=== PATIENT | female | born 1975 | race Caucasian/White ===

== ENCOUNTER 2017-11-05 21:20 | Emergency (ER) | payer OTHER ==
[~2017-11-05] VITALS: Ht 160 cm; Wt 113.4 kg
[~2017-11-05 21:20] MED LIST: AZIT250 PO; CEPH500 PO; CRUTCH4 USE; DIVA250ER; DIVA500EC; HYDACE5 PO; HYDGUAL120 PO; LORA.5 PO; METO10 PO; NAPR500 PO; NAPR550 PO; OXYACE5T PO; PARO20; PENVK500 PO; PROCODE120 PO; RXOXYACE PO; SERT25 PO
[2017-11-05] MEDS ORDERED: Vibramycin100 MG PO (22:05)
[2017-11-05] MEDS ORDERED: CEPH500 PO (22:05)
== END 2017-11-05 22:17 | disposition home or self-care (01) ==
LOC: ER 21:20
DX: L03.317 Cellulitis of buttock (principal); Z88.2 Allergy status to sulfonamides; Z88.5 Allergy status to narcotic agent; Z88.8 Allergy status to other drugs, medicaments and biological substances; Z87.891 Personal history of nicotine dependence
CPT/HCPCS: 99283

== ENCOUNTER 2017-11-07 17:49 | Emergency (ER) | payer OTHER ==
[~2017-11-07] VITALS: Ht 160 cm; Wt 113.4 kg
[~2017-11-07 17:49] MED LIST changes: +Vibramycin100 MG PO
== END 2017-11-07 19:45 | disposition home or self-care (01) ==
LOC: ER 17:49
DX: L02.31 Cutaneous abscess of buttock (principal); Z88.2 Allergy status to sulfonamides; Z88.5 Allergy status to narcotic agent; Z88.8 Allergy status to other drugs, medicaments and biological substances; Z87.891 Personal history of nicotine dependence; Z90.89 Acquired absence of other organs
CPT/HCPCS: 10060; 99283; Q0163

== ENCOUNTER 2018-02-21 19:24 | Emergency (ER) | payer OTHER ==
[~2018-02-21] VITALS: Ht 160 cm; Wt 108.9 kg
== END 2018-02-21 21:53 | disposition home or self-care (01) ==
LOC: ER 19:24
DX: S89.92XA Unspecified injury of left lower leg, initial encounter (principal); X58.XXXA Exposure to other specified factors, initial encounter; Z88.2 Allergy status to sulfonamides; Z88.8 Allergy status to other drugs, medicaments and biological substances; Z88.1 Allergy status to other antibiotic agents; Z87.891 Personal history of nicotine dependence
CPT/HCPCS: 73562-LT; 99283

== ENCOUNTER → 2018-03-02 | Outpatient (CLI) | payer OTHER | END | disposition home or self-care (01) | LOC: LAB 17:17 → LAB SHORT 17:17 | DX: J02.0 Streptococcal pharyngitis (principal) | CPT/HCPCS: 87070; 87147 ==

== ENCOUNTER → 2018-10-05 | Outpatient (CLI) | payer OTHER ==
[2018-10-07 02:11] LABS: CHLAMYDIA TRACHOMATIS, NAA Negative (Negative); NEISSERIA GONORRHOEAE, NAA Negative (Negative)
== END ==
LOC: LAB SHORT 11:51 → LAB 11:51
PROVIDERS: Registered Nurse Community Health
DX: Z12.4 Encounter for screening for malignant neoplasm of cervix (principal); Z11.3 Encounter for screening for infections with a predominantly sexual mode of transmission; N93.0 Postcoital and contact bleeding
CPT/HCPCS: 87070; 87205; 87491; 87591; G0123

== ENCOUNTER 2019-06-20 15:41 | Emergency (ER) | payer OTHER ==
[~2019-06-20] VITALS: Ht 160 cm; Wt 117.9 kg
== END 2019-06-20 17:25 | disposition home or self-care (01) ==
LOC: ER 15:41
DX: R07.81 Pleurodynia (principal); Z87.891 Personal history of nicotine dependence; Z88.2 Allergy status to sulfonamides; Z88.1 Allergy status to other antibiotic agents; Z88.5 Allergy status to narcotic agent; Z88.8 Allergy status to other drugs, medicaments and biological substances
CPT/HCPCS: 71101; 72070; 72100; 99283-25

== ENCOUNTER → 2020-11-08 | Outpatient (CLI) | payer OTHER | LOC: LAB 11:30 → LAB SHORT 11:30 | DX: Z48.817 Encounter for surgical aftercare following surgery on the skin and subcutaneous tissue (principal) | CPT/HCPCS: 87070; 87205 ==

== ENCOUNTER 2021-08-08 09:27 | Day surgery (SDC) | payer OTHER ==
[~2021-08-08] VITALS: Ht 160 cm; Wt 122.9 kg
--- NOTE | 2021-08-08 12:20 | NUR ---
08/08/21 1220 DEZ HASSAN PT REFUSED FENTANYL- MED NOT GIVEN. NORCO 5/325MG PO WILL BE GIVEN INSTEAD. SHE HAS FEARS OF THE FENTANYL.
== END 2021-08-08 13:00 | disposition home or self-care (01) ==
LOC: ORSCSDS 09:27
PROVIDERS: Orthopaedic Surgery
PROC: 0SBC4ZZ Excision of Right Knee Joint, Percutaneous Endoscopic Approach (ICD-10-PCS; principal; 2021-08-08 10:45)
DX: S83.241A Other tear of medial meniscus, current injury, right knee, initial encounter (principal); S83.281A Other tear of lateral meniscus, current injury, right knee, initial encounter; M94.261 Chondromalacia, right knee; M65.9 Synovitis and tenosynovitis, unspecified; J45.909 Unspecified asthma, uncomplicated; G47.33 Obstructive sleep apnea (adult) (pediatric); E66.01 Morbid (severe) obesity due to excess calories; Z68.42 Body mass index [BMI] 45.0-49.9, adult
CPT/HCPCS: A9270; J0171; J1100; J1885; J2250; J2405; J2704; J2795; J3010; J7120

== ENCOUNTER → 2022-02-06 | Outpatient (CLI) | payer OTHER | END | disposition home or self-care (01) | LOC: LAB SHORT 11:46 → LAB 11:46 | DX: R82.998 Other abnormal findings in urine (principal) | CPT/HCPCS: 87086 ==

== ENCOUNTER 2024-09-30 10:06 | Day surgery (SDC) | payer OTHER ==
[~2024-09-30] VITALS: Ht 160 cm; Wt 122.7 kg
[~2024-09-30 10:06] MED LIST changes: +BUPR100 PO; +LINZESS72 MCG PO; +Lactated Ringer's 1,000 ML IV SCH; +OMEP20ER PO; +SERT100 PO
[2024-09-30 10:38] VITALS: BP 104/75
[2024-09-30] MEDS ORDERED: propofoL 100 ML IV ONE (10:38)
--- NOTE | 2024-09-30 10:45 | NUR ---
History, Chart, Medications and Allergies reviewed before start of procedure. Patient confirms NPO status and agrees with scheduled surgery. Patient States Post-Procedure ride home has been arranged with mom, who is in waiting room.
--- NOTE | 2024-09-30 10:58 | NUR ---
PATIENT REPORTS HAVING HAD TUBAL LIGATION IN PAST. NO HCG INDICATED PER POLICY.
--- NOTE | 2024-09-30 11:15 | NUR ---
09/30/24 1114 Hu Macias History, Chart, Medications and Allergies reviewed before start of procedure. MONITOR INTACT WITH CONTINUOUS PULSE OXIMETRY, CONTINUOUS END TITAL CO2, AND INTERMITTENT BLOOD PRESSURE. SEE DR MORA'S NOTES. GLASSES REMOVED IN ENDO ROOM 1.
[2024-09-30 11:39] VITALS: BP 107/60
--- NOTE | 2024-09-30 11:39 | NUR ---
PT TO DAY SURGERY STEP DOWN FROM COLONOSCOPY; BEDSIDE REPORT RECEIVED. PT IS SLEEPING, HAS NASAL TUBE IN LEFT NARE AND NR MASK ON WITH 8L 02/HR.
--- NOTE | 2024-09-30 11:50 | NUR ---
PT AWAKE, NASAL AIRWAY REMOVED AND MASK TAKEN OFF.
[2024-09-30 11:52] VITALS: BP 109/67
--- NOTE | 2024-09-30 11:58 | NUR ---
PT DECLINES PO FLUIDS
--- NOTE | 2024-09-30 12:00 | NUR ---
Discharge instructions reviewed with patient. Patient verbalizes understanding. Copy given to patient to take home. Patient States Post-Procedure ride home has been arranged.
--- NOTE | 2024-09-30 12:19 | NUR ---
Patient up to Ambulate independently. Gait steady. Discharged via wheelchair to private car for ride home.
== END 2024-09-30 12:20 | disposition home or self-care (01) ==
LOC: ORSCMMR 10:06 → ORD 11:30 → ORSCMMR 11:30 → ORD 11:45 → ORSCMMR 12:20
DX: R19.4 Change in bowel habit (principal); K63.5 Polyp of colon; D12.3 Benign neoplasm of transverse colon; K64.4 Residual hemorrhoidal skin tags; K57.30 Diverticulosis of large intestine without perforation or abscess without bleeding; E03.9 Hypothyroidism, unspecified; K21.9 Gastro-esophageal reflux disease without esophagitis; F41.9 Anxiety disorder, unspecified; F32.A Depression, unspecified; G47.30 Sleep apnea, unspecified; Z85.038 Personal history of other malignant neoplasm of large intestine; Z87.891 Personal history of nicotine dependence; E66.01 Morbid (severe) obesity due to excess calories; Z68.42 Body mass index [BMI] 45.0-49.9, adult; Z79.899 Other long term (current) drug therapy
CPT/HCPCS: 88305; J2704; J7120